=== PATIENT | male | born 1970 | race Caucasian/White ===

== ENCOUNTER → 2016-04-22 | Outpatient (CLI) | payer BC ==
--- NOTE | 2016-04-22 08:14 | MR ---
EXAMINATION TYPE: MR shoulder RT wo con DATE OF EXAM: 04/22/2016 7:20 AM COMPARISON: Outside right shoulder x-ray March 04, 2016. HISTORY: Right shoulder pain. Pain with difficulty raising overhead since baseball injury August 2015. TECHNIQUE: Multiplanar, multisequence imaging of the right shoulder is performed without contrast. FINDINGS: Rotator Cuff: Supraspinatus and infraspinatus tendons are both intact. There is no evidence of partia l or full-thickness retracted tears. Rotator cuff muscle bulk is maintained. Subscapularis tendon is intact. Acromioclavicular Joint: There is abnormal widening of the acromioclavicular joint. There is 1.1 cm w ell-corticated ossific fragment superior and lateral to the superior aspect of the distal clavicle. F indings presumed on basis of prior surgical resection with developed heterotopic ossification. Glenohumeral Joint: There is moderate the large glenohumeral joint effusion. There is joint space los s and spurring from the medial margin of the humeral head. Articular cartilaginous loss is present. Labrum: The labrum appears grossly intact given limitation of non-arthrogram study. Biceps Tendon: The long head of biceps is in normal location within bicipital groove. Surrounding flu id signal may be related to glenohumeral joint effusion. Bone marrow signal: Heterogeneous increased T2 signal superior humeral head could reflect subchondral cystic change. Additional areas of involvement are seen superior lateral humeral head near rotator c uff tendon attachment. Other: No additional significant abnormality is appreciated. IMPRESSION: Evidence of prior surgery at level of acromioclavicular joint. No rotator cuff or labral tear is evident. 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
== END | disposition home or self-care (01) ==
LOC: RADMRIMAIN 06:41
PROVIDERS: ATTEND Orthopaedic Surgery
DX: M12.811 Other specific arthropathies, not elsewhere classified, right shoulder (principal); M25.511 Pain in right shoulder